=== PATIENT | female | born 1945 | race Caucasian/White ===

== ENCOUNTER 2018-11-11 12:46 | Inpatient (IN) | payer MEDICARE, BC ==
[~2018-11-11] VITALS: Ht 165.1 cm; Wt 77.3 kg
[2018-11-11] MEDS ORDERED: NS 1,000 ML IV ONE (13:15)
[2018-11-11] MEDS ORDERED: PANTOPRAZOLE 40MG INJ (PROTONIX) (C9113) IV ONE (13:15)
[2018-11-11 13:27] LABS: BASO % 0.3 % (0.0-1.0); EOS # 0.1 10^3/uL (0.0-0.50); EOS % 0.4 % (0.0-3.0); HEMATOCRIT 27.6 % (36.0-47.0); HEMOGLOBIN 8.8 g/dl (12.0-15.5); LYMPH # 3.4 10^3/uL (1.5-4.5); LYMPH % 28.5 % (24.0-44.0); MEAN CORPUSCULAR HEMOGLOBIN 27.9 pg (27.0-33.0); MEAN CORPUSCULAR HGB CONC 31.9 g/dl (32.0-36.5); MEAN CORPUSCULAR VOLUME 87.6 fl (80.0-96.0); MONO # 0.9 10^3/uL (0.0-0.8); MONO % 7.4 % (0.0-5.0); NEUTROPHILS # 7.4 10^3/uL (1.8-7.7); NEUTROPHILS % 62.1 % (36.0-66.0); PLATELET COUNT, AUTOMATED 314 10^3/uL (150-450); RED BLOOD COUNT 3.15 10^6/uL (4.00-5.40); WHITE BLOOD COUNT 11.9 10^3/uL (4.0-10.0)
[2018-11-11 13:37] LABS: INR 1.29; PROTHROMBIN TIME 15.8 SECONDS (11.8-14.0)
[2018-11-11 13:38] LABS: PARTIAL THROMBOPLASTIN TIME 26.6 SECONDS (25.0-38.4)
[2018-11-11] MEDS ORDERED: DOCU-122 PO (13:45)
[2018-11-11] MEDS ORDERED: DILT240C61 PO (13:45)
[2018-11-11] MEDS ORDERED: BETA1TAB PO (13:45)
[2018-11-11] MEDS ORDERED: LISI-538 PO (13:45)
[2018-11-11] MEDS ORDERED: SIMV10TA2 PO (13:45)
[2018-11-11] MEDS ORDERED: VISI0.053 OU (13:45)
[2018-11-11] MEDS ORDERED: FLON1SPR NARES (13:45)
[2018-11-11] MEDS ORDERED: ALPR0.25 PO (13:45)
[2018-11-11] MEDS ORDERED: CALC500C16 PO (13:45)
[2018-11-11] MEDS ORDERED: MECL-68 PO (13:45)
[2018-11-11] MEDS ORDERED: FLEC10TA PO (13:45)
[2018-11-11] MEDS ORDERED: QC F0.52 PO (13:45)
[2018-11-11] MEDS ORDERED: CENT1TAB PO (13:45)
[2018-11-11] MEDS ORDERED: ALLE180T33 PO (13:45)
[2018-11-11] MEDS ORDERED: ELIQ5TAB PO (13:45)
[2018-11-11] MEDS ORDERED: RANI1TAB38 PO (13:45)
[2018-11-11 13:56] LABS: ALBUMIN 2.7 GM/DL (3.2-5.2); BILIRUBIN,DIRECT 0.2 MG/DL (0.0-0.2); BILIRUBIN,TOTAL 0.4 MG/DL (0.2-1.0); CALCIUM LEVEL 8.3 MG/DL (8.8-10.2); CREATININE FOR GFR 1.04 MG/DL (0.55-1.30); GLOMERULAR FILTRATION RATE 55.3 (>39); POTASSIUM SERUM 4.4 MEQ/L (3.5-5.1); TOTAL PROTEIN 5.4 GM/DL (6.4-8.2)
--- NOTE | 2018-11-11 14:24 | REP ---
LEFT FOOT: Four views. HISTORY: Syncope. No comparison views. FINDINGS: The patient is status post surgery including bunionectomy of the 1st distal metatarsal, metallic staple arthrodesis of the 1st tarsometatarsal articulation, metallic staple arthrodesis at the talonavicular articulation, and metallic screw fusion arthrodesis in the subtalar articulation. There is plantar and Achilles calcaneal spurring. There is some spurring of the cuboid. The bones joints and soft tissues are otherwise unremarkable. No acute bony abnormality is seen. IMPRESSION: No fracture. Extensive surgical changes as above. Electronically Signed by Rashi Chapa MD 11/11/2018 09:00 P
--- NOTE | 2018-11-11 14:47 | REP ---
REASON FOR EXAM: Syncopal episode. FINDINGS: The technique utilized in obtaining the radiograph has magnified the cardiac silhouette and accentuated the interstitial markings. The superior mediastinal structures are midline. The cardiac silhouette is unremarkable in size, shape, and position. The diaphragmatic surfaces of the lungs are regular, and the costophrenic angles are clear. The pulmonary stovall are clear. The imaged osseous structures are intact. IMPRESSION: There is no acute cardiopulmonary disease. Electronically Signed by Nba Gamble DO 11/12/2018 03:08 P
[2018-11-11] MEDS ORDERED: MIRA3350 PO (15:04)
[2018-11-11] MEDS ORDERED: ACE65ERTAB PO (15:04)
[2018-11-11] MEDS ORDERED: LORazepam 0.5 MG TAB PO STA (15:11)
[2018-11-11] MEDS ORDERED: ACETAMINOPHEN TAB 650MG DOSE (2X325MG) PO PRN (16:00)
[2018-11-11] MEDS ORDERED: ONDANSETRON 4MG/2ML VIAL (J2405) IV PRN ×2 (16:00→19:45)
--- NOTE | 2018-11-11 16:11 | HPEPDOC ---
General Date of Admission 11/11/18 Date of Service: Nov 11, 2018 Attending Physician: FIONA GREENE DO Chief Complaint The patient is a 73-year-old female admitted with a reason for visit of Upper Gi Bleed. History of Present Illness Patient is 73 old female with past medical history of atrial fibrillation on anticoagulation, GERD, hypertension presents to the hospital after episode of syncope. Patient states that she fainted in the morning in front of her was physically present in the room. Patient stated that she remember that she was lightheadedness before she fainted. stated that patient regained consciousness in 5 minutes. Patient did not have any seizure-like activities, no urinary incontinence or fecal incontinence. After syncope patient developed one episode of emesis. When patient arrived hospital she was found to have hemoglobin of 8.8. Patient denies fever, chills, chest pain, palpitations, day or dysuria. Home Medications Scheduled Alprazolam (Alprazolam) 0.25 Mg Tablet, 0.25 MG PO BID, (Reported) Apixaban (Eliquis) 5 Mg Tablet, 5 MG PO BID, (Reported) Beta-Carotene(A)-Vits C,E/Mins (Vision Vitamins) 1 Each Tablet, 1 TAB PO DAILY, (Reported) Calcium Carbonate (Calcium) 500 Mg Tab.chew, 500 MG PO BID, (Reported) Fexofenadine HCl (Ana Allergy) 180 Mg Tablet, 180 MG PO DAILY for allergy symptoms, (Reported) Flecainide Acetate (Flecainide Acetate) 100 Mg Tablet, 100 MG PO BID, (Reported) Fluticasone Propionate (Flonase Allergy Relief) 9.9 Ml [place].susp, 2 SPRAY NARES QHS, (Reported) Lisinopril (Lisinopril) 20 Mg Tablet, 20 MG PO BID, (Reported) Multivit-Min/FA/Lycopen/Lutein (Centrum Silver Tablet) 1 Each Tablet, 1 TAB PO DAILY, (Reported) NORMALLY TAKES WITH LUNCH Psyllium Husk (Fiber) 0.52 Gm Capsule, 1 CAP PO BID, (Reported) Ranitidine Hcl (Ranitidine HCl) 150 Mg Tablet, 1 TAB PO DAILY, (Reported) Simvastatin (Simvastatin) 10 Mg Tablet, 10 MG PO QHS, (Reported) dilTIAZem HCl (Diltiazem 24Hr Cd) 240 Mg Cap.er.24h, 240 MG PO DAILY, (Reported) Scheduled PRN Acetaminophen (Acetaminophen ER) 650 Mg Tablet.er, 1,300 MG PO DAILY PRN for PAIN, (Reported) Docusate Sodium (Stool Softener) 100 Mg Capsule, 200 MG PO DAILY PRN for CONSTIPATION, (Reported) Meclizine HCl (Meclizine HCl) 25 Mg Tablet, 25 MG PO Q6H PRN for NAUSEA, (Reported) Polyethylene Glycol 3350 (Miralax) 119 Gm Powder, 17 GM PO DAILY PRN for CONSTIPATION, (Reported) dilute in 8 ounces of water or juice Tetrahydroz/Dext 70/Peg 400/Pv (Visine Advanced Eye Drop) 15 Ml Drops, 1 DROP OU Q6H PRN for ITCHING/SWELLING, (Reported) Allergies Coded Allergies: Penicillins (Verified Allergy, Intermediate, HIVES, 11/11/18) Past Medical History Medical History Atrial fibrillation, GERD, hypertension Surgical History Left foot surgery Family History Significant Family History: No pertinent family hx Social History * Smoker: Denies Alcohol: Denies Drugs: denies A-FIB/CHADSVASC A-FIB History Current/History of A-Fib/PAF?: Yes Current PO Anticoag Therapy: Yes Treatment Treatment ordered: Apixaban Physical Examination General Exam: Positive: Alert, Cooperative, No Acute Distress Eye Exam: Positive: PERRLA, Conjunctiva & lids normal, EOMI ENT Exam: Positive: Atraumatic, Mucous membr. moist/pink Neck Exam: Positive: +2 carotid pulse wo bruit; Negative: JVD, thyromegaly Chest Exam: Positive: Clear to auscultation, Normal air movement; Negative: Rales, Rhonchi Heart Exam: Positive: Rate Normal, Irregular Rhythm Telemetry: Positive: Atrial fibrillation Abdomen Exam: Positive: BS Hyperactive, Soft; Negative: Normal bowel sounds, Tenderness Extremity Exam: Negative: Clubbing, Cyanosis, Edema Skin Exam: Positive: Nl turgor and temperature; Negative: Rash, Breakdown Neuro Exam: Positive: Normal Speech, Cranial Nerves 3-12 NL Psych Exam: Positive: Mental status NL, Mood NL; Negative: Anxiety Vital Signs Vital Signs Date Time Temp Pulse Resp B/P (MAP) Pulse Ox O2 Delivery O2 Flow Rate FiO2 11/11/18 15:16 70 100 11/11/18 15:15 126/58 (80) 8/14/19 12:53 96.9 15 Room Air Laboratory Data Labs 24H Laboratory Tests 2 11/11/18 13:06: Immature Granulocyte % (Auto) 1.3, White Blood Count 11.9H, Red Blood Count 3.15L, Hemoglobin 8.8L, Hematocrit 27.6L, Mean Corpuscular Volume 87.6, Mean Corpuscular Hemoglobin 27.9, Mean Corpuscular Hemoglobin Concent 31.9L, Red Cell Distribution Width 13.2, Platelet Count 314, Neutrophils (%) (Auto) 62.1, Lymphocytes (%) (Auto) 28.5, Monocytes (%) (Auto) 7.4H, Eosinophils (%) (Auto) 0.4, Basophils (%) (Auto) 0.3, Neutrophils # (Auto) 7.4, Lymphocytes # (Auto) 3.4, Monocytes # (Auto) 0.9H, Eosinophils # (Auto) 0.1, Basophils # (Auto) 0.0, Nucleated Red Blood Cells % (auto) 0.0, Prothrombin Time 15.8H, Prothromb Time International Ratio 1.29, Activated Partial Thromboplast Time 26.6, Anion Gap 8, Glomerular Filtration Rate 55.3, Lactic Acid Level 1.7, Calcium Level 8.3L, Aspartate Amino Transf (AST/SGOT) 9, Alanine Aminotransferase (ALT/SGPT) 15, Alkaline Phosphatase 62, Total Bilirubin 0.4, Direct Bilirubin 0.2, Total Protein 5.4L, Albumin 2.7L, Albumin/Globulin Ratio 1.00, Lipase 254 CBC/BMP Laboratory Tests 11/11/18 13:06 Red Blood Count 3.15 L, Mean Corpuscular Volume 87.6, Mean Corpuscular Hemoglobin 27.9, Mean Corpuscular Hemoglobin Concent 31.9 L, Red Cell Distribution Width 13.2, Neutrophils (%) (Auto) 62.1, Lymphocytes (%) (Auto) 28.5, Monocytes (%) (Auto) 7.4 H, Eosinophils (%) (Auto) 0.4, Basophils (%) (Auto) 0.3, Neutrophils # (Auto) 7.4, Lymphocytes # (Auto) 3.4, Monocytes # (Auto) 0.9 H, Eosinophils # (Auto) 0.1, Basophils # (Auto) 0.0 Assessment/Plan Upper GI bleed IV fluid Orthostatic vital signs IV Protonix Appreciate/agree with GI consult Patient will need endoscopy H&H every 6 hours Clear liquid diet Acute blood loss anemia Secondary to upper GI bleed Continue to monitor, transfuse if hemoglobin less than 7 Syncope Most likely due to acute blood loss. EKG, telemetry Atrial fibrillation Heart rate is under control. We continued to hold anticoagulation Plan / VTE VTE Prophylaxis Ordered?: Yes VTE Exclusion Pharmacological: Hemorrhage FIONA GREENE DO Nov 11, 2018 16:11
[2018-11-11] MEDS ORDERED: MECLIZINE 25 MG TABLET PO PRN (16:15)
[2018-11-11 17:10] LABS: HEMATOCRIT 24.7 % (36.0-47.0); HEMOGLOBIN 8.1 g/dl (12.0-15.5)
[2018-11-11] MEDS: NS 1,000 ML IV SCH (17:50)
[2018-11-11] MEDS ORDERED: LIDOCAINE 2% INJ 100 MG/5 ML SDV (FOR ANES.) As Ordered ONE (18:01)
[2018-11-11] MEDS ORDERED: ONDANSETRON 4MG/2ML VIAL (J2405) As Ordered ONE ×2 (18:01→19:35)
[2018-11-11] MEDS ORDERED: dexameTHASONE 4 MG/ML 1ML VIAL (J1100) As Ordered ONE (18:01)
[2018-11-11] MEDS ORDERED: PROPOFOL 200 MG/20 ML VIAL As Ordered ONE (18:01)
[2018-11-11] MEDS ORDERED: MIDAZOLAM INJ 2 MG/2 ML VIAL (J2250) As Ordered ONE (18:01)
[2018-11-11] MEDS ORDERED: SUCCINYLCHOLINE 100 MG/5 ML SYRINGE (J0330) As Ordered ONE (18:01)
[2018-11-11] MEDS ORDERED: fentaNYL 100 MCG/2 ML INJECTION (J3010) As Ordered ONE (18:01)
--- NOTE | 2018-11-11 18:06 | ECGEPIP ---
[facility] - ED Test Date: 2018-11-11 Pat Name: DENA LEVINE Department: Room: [facility] Gender: Female Creative Director: ANGELICA : 1945 Requested By: DEAN CHARLES Order Number: [id number] Reading MD: Jess Vaughn Measurements Intervals [place] Rate: 71 P: 44 AK: 192 QRS: 15 QRSD: 144 T: 155 QT: 426 QTc: 464 Interpretive Statements SINUS RHYTHM LEFT BUNDLE BRANCH BLOCK NO PRIOR Electronically Signed on 11-11-2018 18:06:16 EDT by Jess Vaughn
--- NOTE | 2018-11-11 18:20 | CR.PDOC ---
General Surgery Consultation Date of Consultation 11/11/18 History and Physical CONSULT REPORT FOR: Mina Booker REASON FOR CONSULTATION: Suspect upper GI bleed HISTORY OF PRESENT ILLNESS: Patient is a 73-year-old female brought in for 2 episodes of syncope today. Patient reports that when she woke up this morning she wasn't feeling well, slightly lightheaded. She had 2 episodes of syncope. The same time she had some coffee ground emesis. She was then brought to the emergency room and was found to be anemic with a hemoglobin of 8.8. She reports prior history of gastroesophageal reflux for which she takes ranitidine with good control of her heartburn symptoms. She denies any prior history of peptic ulcer disease and has no prior history of upper endoscopy done for any reason. She has had previous colonoscopy done roughly 3 years ago in [place] with no significant findings at that time. While she was in the emergency room she reports she has had 2 melanotic bowel movements. She denies any significant epigastric discomfort, chest pain, further lightheadedness. Patient is taking Eliquis for atrial fibrillation. She took at this morning. PAST MEDICAL HISTORY: Atrial fibrillation, GERD, hypertension Surgical History PAST SURGICAL HISTORY: INCLUDES: 1. Left foot surgery. PREVIOUS ANESTHESIA REACTIONS: Patient reports slow to wake up with anesthesia ALLERGIES: Please see below. FAMILY HISTORY: Noncontributory. HOME MEDICATIONS: Please see below. REVIEW OF SYSTEMS: GENERAL: Patient reports she was in her usual state of health prior to today. Denies any significant weight gain or weight loss. HEENT: Denies blurred vision and double vision. Denies ear symptoms. Denies hoarseness. NECK: Denies any neck pain CARDIOVASCULAR: Denies chest pain and palpitations. MUSCULOSKELETAL: Denies arthralgias, back pain and thrombophlebitis. SKIN: Denies rash. NEUROLOGIC: Denies headache, stroke and transient ischemic attack. PSYCHIATRIC: Denies anxiety and depression. ENDOCRINE: Denies thyroid disease. HEMATOLOGY/ONCOLOGY: Denies bleeding or clotting disorder. Patient is on Eliquis for atrial fibrillation. Last intake was this morning HEART: Denies any chest pains, palpitations, paroxysmal dyspnea, orthopnea. PULMONARY: Denies chronic cough, dyspnea and wheezing. GASTROINTESTINAL: See HPI. GENITOURINARY: Denies dysuria, frequency, hematuria and nocturia. ENDOCRINE: Denies polydipsia, polyphagia, polyuria, heat or cold intolerance. INFECTIOUS: Denies any recent upper respiratory tract infection, UTI, need for use of antibiotics. NUTRITION: Feels hungry, reports fair appetite. PHYSICAL EXAMINATION: VITALS SIGNS: Please see below. GENERAL APPEARANCE: Patient seen relatively comfortable, looks pale. SKIN: Warm and dry. HEENT: Normocephalic, atraumatic. Pale palpebral conjunctiva, anicteric sclerae. Lips and mucosa appear dry. NECK: Supple, no thyromegaly. No obvious jugular venous distention. LUNGS: Clear to auscultation bilaterally. No wheezing appreciated. HEART: No chest wall abnormalities. Regular rate and rhythm with no murmurs appreciated. ABDOMEN: Abdomen is mildly obese, soft, nondistended. Nontender on palpation. EXTREMITIES: Extremities have no deformities. No edema identified ANCILLARIES: . LABORATORY DATA: Please see below. IMAGING STUDIES: No relevant studies. IMPRESSION AND PLAN: Suspect upper GI bleeding Post-hemorrhagic anemia Repeat hemoglobin and hematocrit 4 hours after the initial one shows a slight drop at 8.1 and 24.7. Patient reports 2 melanotic episodes when she was in the emergency room. She remains hemodynamically stable. She received a dose of Pro tonix IV. I counseled her on the rationale and need for performing an upper endoscopy to rule out an upper GI bleed source, check if she still actively bleeding and try to stem the bleeding with endoscopic modalities. Consent was obtained from the patient after full discussion of risks and benefits including risks for further bleeding, perforation, need for surgical procedure. Vital Signs Vital Signs Date Time Temp Pulse Resp B/P (MAP) Pulse Ox O2 Delivery O2 Flow Rate FiO2 11/11/18 17:54 97.6 82 20 161/67 (98) 99 Room Air Laboratory Data Labs 24H Laboratory Tests 2 11/11/18 13:06: Immature Granulocyte % (Auto) 1.3, White Blood Count 11.9H, Red Blood Count 3.15L, Hemoglobin 8.8L, Hematocrit 27.6L, Mean Corpuscular Volume 87.6, Mean Corpuscular Hemoglobin 27.9, Mean Corpuscular Hemoglobin Concent 31.9L, Red Cell Distribution Width 13.2, Platelet Count 314, Neutrophils (%) (Auto) 62.1, Lymphocytes (%) (Auto) 28.5, Monocytes (%) (Auto) 7.4H, Eosinophils (%) (Auto) 0.4, Basophils (%) (Auto) 0.3, Neutrophils # (Auto) 7.4, Lymphocytes # (Auto) 3.4, Monocytes # (Auto) 0.9H, Eosinophils # (Auto) 0.1, Basophils # (Auto) 0.0, Nucleated Red Blood Cells % (auto) 0.0, Prothrombin Time 15.8H, Prothromb Time International Ratio 1.29, Activated Partial Thromboplast Time 26.6, Anion Gap 8, Glomerular Filtration Rate 55.3, Lactic Acid Level 1.7, Calcium Level 8.3L, Aspartate Amino Transf (AST/SGOT) 9, Alanine Aminotransferase (ALT/SGPT) 15, Alkaline Phosphatase 62, Total Bilirubin 0.4, Direct Bilirubin 0.2, Total Protein 5.4L, Albumin 2.7L, Albumin/Globulin Ratio 1.00, Lipase 254 CBC/BMP Laboratory Tests 11/11/18 13:06 Red Blood Count 3.15 L, Mean Corpuscular Volume 87.6, Mean Corpuscular Hemoglobin 27.9, Mean Corpuscular Hemoglobin Concent 31.9 L, Red Cell Distribution Width 13.2, Neutrophils (%) (Auto) 62.1, Lymphocytes (%) (Auto) 28.5, Monocytes (%) (Auto) 7.4 H, Eosinophils (%) (Auto) 0.4, Basophils (%) (Auto) 0.3, Neutrophils # (Auto) 7.4, Lymphocytes # (Auto) 3.4, Monocytes # (Auto) 0.9 H, Eosinophils # (Auto) 0.1, Basophils # (Auto) 0.0 11/11/18 16:41 Home Medications Scheduled Alprazolam (Alprazolam) 0.25 Mg Tablet, 0.25 MG PO BID, (Reported) Apixaban (Eliquis) 5 Mg Tablet, 5 MG PO BID, (Reported) Beta-Carotene(A)-Vits C,E/Mins (Vision Vitamins) 1 Each Tablet, 1 TAB PO DAILY, (Reported) Calcium Carbonate (Calcium) 500 Mg Tab.chew, 500 MG PO BID, (Reported) Fexofenadine HCl (Ana Allergy) 180 Mg Tablet, 180 MG PO DAILY for allergy symptoms, (Reported) Flecainide Acetate (Flecainide Acetate) 100 Mg Tablet, 100 MG PO BID, (Reported) Fluticasone Propionate (Flonase Allergy Relief) 9.9 Ml [place].susp, 2 SPRAY NARES QHS, (Reported) Lisinopril (Lisinopril) 20 Mg Tablet, 20 MG PO BID, (Reported) Multivit-Min/FA/Lycopen/Lutein (Centrum Silver Tablet) 1 Each Tablet, 1 TAB PO DAILY, (Reported) NORMALLY TAKES WITH LUNCH Psyllium Husk (Fiber) 0.52 Gm Capsule, 1 CAP PO BID, (Reported) Ranitidine Hcl (Ranitidine HCl) 150 Mg Tablet, 1 TAB PO DAILY, (Reported) Simvastatin (Simvastatin) 10 Mg Tablet, 10 MG PO QHS, (Reported) dilTIAZem HCl (Diltiazem 24Hr Cd) 240 Mg Cap.er.24h, 240 MG PO DAILY, (Reported) Scheduled PRN Acetaminophen (Acetaminophen ER) 650 Mg Tablet.er, 1,300 MG PO DAILY PRN for PAIN, (Reported) Docusate Sodium (Stool Softener) 100 Mg Capsule, 200 MG PO DAILY PRN for CONSTIPATION, (Reported) Meclizine HCl (Meclizine HCl) 25 Mg Tablet, 25 MG PO Q6H PRN for NAUSEA, (Reported) Polyethylene Glycol 3350 (Miralax) 119 Gm Powder, 17 GM PO DAILY PRN for CONSTIPATION, (Reported) dilute in 8 ounces of water or juice Tetrahydroz/Dext 70/Peg 400/Pv (Visine Advanced Eye Drop) 15 Ml Drops, 1 DROP OU Q6H PRN for ITCHING/SWELLING, (Reported) Allergies Coded Allergies: Penicillins (Verified Allergy, Intermediate, HIVES, 11/11/18) BETHANY CARSON MD Nov 11, 2018 18:20
[2018-11-11] MEDS ORDERED: PHENYLephrine HCL 500 MCG/5 ML (100MCG/ML) SYRINGE (J2370) As Ordered ONE (18:58)
[2018-11-11] MEDS ORDERED: ePHEDrine SULFATE 25 MG/5 ML(5MG/ML) SYRINGE As Ordered ONE (18:58)
[2018-11-11] MEDS ORDERED: EPINEPHrine 1MG/10ML SYRINGE 1.5IN As Ordered ONE (19:00)
[2018-11-11] MEDS ORDERED: EPINEPHrine INJ 1 MG/ML 1ML AMP As Ordered ONE (19:01)
[2018-11-11] MEDS ORDERED: EPINEPHrine 1MG/ML INJ 30ML MD-VIAL As Ordered ONE (19:01)
--- NOTE | 2018-11-11 19:17 | ROOR ---
Patient Name: DENA LEVINE Procedure Date: 11/11/2018 6:13 PM Date of : 1945 Age: 73 Note Status: Finalized Procedure: Upper GI endoscopy Indications: Hematemesis, Melena Providers: Heriberto Harper MD Referring MD: 2. Inpatient 2. Inpatient Requesting Provider: Medicines: General Anesthesia Complications: No immediate complications. Procedure: Pre-Anesthesia Assessment: - Prior to the procedure, a History and Physical was performed, and patient medications and allergies were reviewed. The patient is competent. The risks and benefits of the procedure and the sedation options and risks were discussed with the patient. All questions were answered and informed consent was obtained. Patient identification and proposed procedure were verified by the physician, the nurse and the anesthesiologist in the procedure room. Mental Status Examination: alert and oriented. Airway Examination: normal oropharyngeal airway and neck mobility. Respiratory Examination: clear to auscultation. CV Examination: normal. Prophylactic Antibiotics: The patient does not require prophylactic antibiotics. Prior Anticoagulants: The patient has taken Eliquis (apixaban), last dose was day of procedure. ASA Grade Assessment: III - A patient with severe systemic disease. After reviewing the risks and benefits, the patient was deemed in satisfactory condition to undergo the procedure. The anesthesia plan was to use general anesthesia. Immediately prior to administration of medications, the patient was re-assessed for adequacy to receive sedatives. The heart rate, respiratory rate, oxygen saturations, blood pressure, adequacy of pulmonary ventilation, and response to care were monitored throughout the procedure. The physical status of the patient was re-assessed after the procedure. The Endoscope was introduced through the mouth, and advanced to the second part of duodenum. The upper GI endoscopy was accomplished without difficulty. The patient tolerated the procedure well. Findings: There is no endoscopic evidence of bleeding, areas of erosion or esophagitis in the entire esophagus. Estimated blood loss: none. Hematin (altered blood/rttlng-ejljqe-tbik material) was found at the pylorus. One non-bleeding cratered gastric ulcer with adherent clot was found in the prepyloric region of the stomach. The lesion was 5 mm in largest dimension. For hemostasis, two hemostatic clips were successfully placed (MR conditional). There was no bleeding at the end of the procedure. Area was successfully injected with 3 mL of a 1:10,000 solution of epinephrine for hemostasis. The examined duodenum was normal. Estimated blood loss: none. Impression: - Hematin (altered blood/xsekfc-laxpee-qnfl material) in the pylorus. - Non-bleeding gastric ulcer with adherent clot. Clips (MR conditional) were placed. Injected. - Normal examined duodenum. - No specimens collected. Recommendation: - Admit the patient to [facility] for ongoing care. - Clear liquid diet. - Use Protonix (pantoprazole) 40 mg IV BID. Heriberto Harper MD Heriberto Harper MD 11/11/2018 7:17:10 PM Electronically signed by Heriberto Harper MD Number of Addenda: 0 Note Initiated On: 11/11/2018 6:13 PM Estimated Blood Loss: Estimated blood loss was minimal.
[2018-11-11] MEDS ORDERED: METOCLOPRAMIDE INJ 10MG/2ML VIAL (J2765) As Ordered ONE (19:41)
[2018-11-11] MEDS ORDERED: LR 1,000 ML IV SCH (19:45)
[2018-11-11] MEDS ORDERED: fentaNYL 100 MCG/2 ML INJECTION (J3010) IV PRN (19:45)
[2018-11-11] MEDS ORDERED: PROMETHAZINE INJ 25 MG/ML VIAL (J2550) IV PRN (20:00)
[2018-11-11 20:35] VITALS: BP 162/70
[2018-11-11] MEDS: PANTOPRAZOLE 40MG INJ (PROTONIX) (C9113) IV SCH (20:55)
[2018-11-11] MEDS: SIMVASTATIN 10 MG TAB PO SCH (20:56)
[2018-11-11] MEDS: FLECAINIDE 50MG TABLET PO SCH (20:56)
[2018-11-11] MEDS: ALPRAZolam 0.25 MG TAB PO SCH (20:56)
[2018-11-11] MEDS: FLUTICASONE PROP 0.05% NASAL SPRAY 16 GM (FLONASE) NARES SCH (20:57)
[2018-11-11 21:00] VITALS: BP 166/70
[2018-11-11 21:30] VITALS: BP 133/64
[2018-11-11 22:13] LABS: HEMATOCRIT 24.7 % (36.0-47.0)
[2018-11-11 22:30] VITALS: BP 136/64
[2018-11-11 23:30] VITALS: BP 149/64
[2018-11-12] MEDS: NS 1,000 ML IV SCH (00:18)
[2018-11-12 00:30] VITALS: BP 147/63
[2018-11-12 02:00] VITALS: BP 145/62
[2018-11-12 05:45] LABS: HEMOGLOBIN 7.2 g/dl (12.0-15.5)
[2018-11-12 06:00] VITALS: BP 115/55
[2018-11-12 07:59] LABS: ALBUMIN 2.6 GM/DL (3.2-5.2); BILIRUBIN,TOTAL 0.4 MG/DL (0.2-1.0); CALCIUM LEVEL 8.3 MG/DL (8.8-10.2); CREATININE FOR GFR 1.03 MG/DL (0.55-1.30); GLOMERULAR FILTRATION RATE 55.9 (>39); POTASSIUM SERUM 4.6 MEQ/L (3.5-5.1)
[2018-11-12] MEDS ORDERED: PREVNAR 13 VACCINE SYRINGE (CPT CODE:90670) IM ONE (09:00)
[2018-11-12] MEDS: PANTOPRAZOLE 40MG INJ (PROTONIX) (C9113) IV SCH ×2 (10:26→22:29)
[2018-11-12] MEDS: ALPRAZolam 0.25 MG TAB PO SCH ×2 (10:28→22:29)
[2018-11-12] MEDS: FLECAINIDE 50MG TABLET PO SCH ×2 (10:28→22:29)
[2018-11-12] MEDS: FEXOFENADINE 60 MG TAB PO SCH (10:29)
--- NOTE | 2018-11-12 12:32 | IPNPDOC ---
Text Note Date of Service The patient was seen on 11/12/18. NOTE Subjective Acute events overnight. Awake, alert, oriented. Patient denies any fever, chills, nausea, vomiting, chest pain, palpitations, diarrhea or dysuria Objective General: NAD HEENT: PERRLA, EOMI Lungs: Clear to auscultation bilaterally Abdomen: Nontender, nondistended, bowel sounds present CV: S1-S2, regular rhythm Extremitas: No edema, no cyanosis of LE A/P Patient is 73 years old female with past history of atrial fibrillation, GERD, hypertension presents to the hospital with history of coffee-ground emesis and syncope. Also patient had 2 episodes of melanotic stool. EGD was done yesterday and showed one nonbleeding crater ulcer with adherent clot in the prepyloric region, hemostatic clips successfully placed Upper GI bleed Secondary to prepyloric ulcer visible during EGD Continue treatment with IV Protonix for 72 hours total Continue clear liquid diet Will transfuse if hemoglobin is less than 7 Gastric ulcer Patient will need follow-up with magazine writer in the outpatient settings in 6 weeks Avoid NSAIDs Acute blood loss anemia Secondary to upper GI bleed no signs or symptoms of continuous acute bleeding for now Will check iron panel Atrial fibrillation Will continue to hold anticoagulation therapy in light of recent upper GI bleeding Syncope Secondary to acute GI bleed Continue Telemetry VS,Krystal, I+O VS, Krystal, I+O Laboratory Tests 11/11/18 13:06 Red Blood Count 3.15 L, Mean Corpuscular Volume 87.6, Mean Corpuscular Hemoglobin 27.9, Mean Corpuscular Hemoglobin Concent 31.9 L, Red Cell Distribution Width 13.2, Neutrophils (%) (Auto) 62.1, Lymphocytes (%) (Auto) 28.5, Monocytes (%) (Auto) 7.4 H, Eosinophils (%) (Auto) 0.4, Basophils (%) (Auto) 0.3, Neutrophils # (Auto) 7.4, Lymphocytes # (Auto) 3.4, Monocytes # (Auto) 0.9 H, Eosinophils # (Auto) 0.1, Basophils # (Auto) 0.0 11/11/18 16:41 11/11/18 21:56 11/12/18 04:05 Calcium Level 8.3 L, Aspartate Amino Transf (AST/SGOT) 11, Alanine Aminotransferase (ALT/SGPT) 16, Alkaline Phosphatase 53, Total Bilirubin 0.4, Total Protein 5.0 L, Albumin 2.6 L Vital Signs Date Time Temp Pulse Resp B/P (MAP) Pulse Ox O2 Delivery O2 Flow Rate FiO2 11/12/18 06:00 97.6 79 18 115/55 (75) 97 11/11/18 19:45 2 11/11/18 17:54 Room Air I&O- Last 24 Hours up to 6 AM 11/12/18 06:00 Intake Total 1885 ml Output Total 950 ml Balance 935 ml FIONA GREENE DO Nov 12, 2018 12:32
[2018-11-12 13:40] LABS: HEMATOCRIT 21.3 % (36.0-47.0)
[2018-11-12 13:45] LABS: HEMOGLOBIN 6.9 g/dl (12.0-15.5)
--- NOTE | 2018-11-12 14:19 | IPNPDOC ---
Subjective General Date/Time Seen The patient was seen on 11/12/18 at 14:16. Subject Chief Complaint/History The patient is a 73-year-old female admitted with a reason for visit of Gi Bleed,Syncope. Patient seen, looks comfortable. A explained to her my findings in the endoscopy as well as to her later on. She denies any abdominal discomfort. She reports she had one bowel movement this morning that colored black, not sure if solid or tarry. Current Medications Current Medications Current Medications Medications (Trade) Dose Ordered Sig/Demi Route PRN Reason Start Time Stop Time Status Last Admin Dose Admin Acetaminophen (Tylenol Tab) 650 mg Q4HP PRN PO PAIN OR FEVER 11/11/18 16:00 Alprazolam (Xanax) 0.25 mg BID PO 11/11/18 21:00 11/12/18 10:28 Fentanyl Citrate (Sublimaze) 25 mcg Q5MP PRN IV MODERATE PAIN (PS 4-7) 11/11/18 19:45 11/11/18 20:45 DC Fexofenadine HCl (Ana) 180 mg DAILY PO 11/12/18 09:00 11/12/18 10:29 Flecainide Acetate (Tambocor) 100 mg BID PO 11/11/18 21:00 11/12/18 10:28 Fluticasone Propionate (Flonase 0.05% Nasal [place]) 2 spray QHS NARES 11/11/18 21:00 11/11/18 20:57 Home Med (Med Rec Complete!) ASDIRECTED XX 11/11/18 15:30 11/11/18 15:30 DC Lactated Ringer's 1,000 ml @ 75 mls/hr [id number] IV 11/11/18 19:45 11/11/18 20:45 DC Lorazepam (Ativan) 0.5 mg STAT STAT PO 11/11/18 15:11 11/11/18 15:12 DC 11/11/18 15:32 Meclizine HCl (Antivert) 25 mg Q6HP PRN PO NAUSEA 11/11/18 16:15 Ondansetron HCl (ZOFRAN INJection) 4 mg Q4HP PRN IV NAUSEA OR VOMITING 11/11/18 16:00 Ondansetron HCl (ZOFRAN INJection) 4 mg Q4HP PRN IV NAUSEA OR VOMITING 11/11/18 19:45 11/11/18 20:45 DC Pantoprazole Sodium (Protonix) 40 mg BID IV 11/11/18 21:00 11/12/18 10:26 Promethazine HCl (PHENERGAN INJection) 12.5 mg Q5MP PRN IV NAUSEA OR VOMITING 11/11/18 20:00 11/11/18 21:00 DC Simvastatin (Zocor) 10 mg QHS PO 11/11/18 21:00 11/11/18 20:56 Sodium Chloride 1,000 ml @ 100 mls/hr Q10H IV 11/11/18 16:00 11/12/18 11:59 DC 11/12/18 00:18 Allergies Coded Allergies: Penicillins (Verified Allergy, Intermediate, HIVES, 11/11/18) Objective Physical Examination Examination GENERAL APPEARANCE:Patient seen, laying in bed, awake, alert, and oriented. Comfortable, in no acute distress. SKIN: Warm and moist. ABDOMEN: Abdomen is nondistended, soft, and nontender. EXTREMITIES: Extremities have no deformities. No edema identified. Vital Signs Vital Signs Date Time Temp Pulse Resp B/P (MAP) Pulse Ox O2 Delivery O2 Flow Rate FiO2 11/12/18 06:00 97.6 79 18 115/55 (75) 97 11/11/18 19:45 2 11/11/18 17:54 Room Air I&Os I&O- Last 24 Hours up to 6 AM 11/12/18 06:00 Intake Total 1885 ml Output Total 950 ml Balance 935 ml Laboratory Data Labs 24H Laboratory Tests 2 11/12/18 04:05: Anion Gap 7L, Glomerular Filtration Rate 55.9, Blood Urea Nitrogen 40H, Creatinine 1.03, Sodium Level 140, Potassium Level 4.6, Chloride Level 108H, Carbon Dioxide Level 25, Calcium Level 8.3L, Aspartate Amino Transf (AST/SGOT) 11, Alanine Aminotransferase (ALT/SGPT) 16, Alkaline Phosphatase 53, Total Bilirubin 0.4, Total Protein 5.0L, Albumin 2.6L, Albumin/Globulin Ratio 1.08 CBC/BMP Laboratory Tests 11/11/18 16:41 11/11/18 21:56 11/12/18 04:05 Calcium Level 8.3 L, Aspartate Amino Transf (AST/SGOT) 11, Alanine Aminotransferase (ALT/SGPT) 16, Alkaline Phosphatase 53, Total Bilirubin 0.4, Total Protein 5.0 L, Albumin 2.6 L 11/12/18 13:24 Impression Upper GI bleeding from a prepyloric ulcer status post EGD, placement of clips and injection of epinephrine Hemodynamically stable. I'll advance her to soft diet. Continue monitoring. Transfusion per primary team if needed. Keep on by mouth Protonix 40 twice a day for 6 weeks then tapered down to 40 daily. She lives primarily in [place]. I told him that she may need to consult a local physician for re-endoscopy in a few months to check for healing of the ulcer Plan / VTE VTE Prophylaxis Ordered?: Yes VTE Exclusion Pharmacological: Hemorrhage BETHANY CARSON MD Nov 12, 2018 14:19
[2018-11-12 22:00] VITALS: BP 167/77
[2018-11-12] MEDS: SIMVASTATIN 10 MG TAB PO SCH (22:29)
[2018-11-12] MEDS: FLUTICASONE PROP 0.05% NASAL SPRAY 16 GM (FLONASE) NARES SCH (22:30)
[2018-11-13] VITALS (9 sets, daily range): BP systolic 111–181; BP diastolic 58–77
[2018-11-13 07:47] LABS: HEMATOCRIT 24.4 % (36.0-47.0); HEMOGLOBIN 8.2 g/dl (12.0-15.5); MEAN CORPUSCULAR HEMOGLOBIN 28.2 pg (27.0-33.0); MEAN CORPUSCULAR HGB CONC 33.6 g/dl (32.0-36.5); MEAN CORPUSCULAR VOLUME 83.8 fl (80.0-96.0); PLATELET COUNT, AUTOMATED 239 10^3/uL (150-450); RED BLOOD COUNT 2.91 10^6/uL (4.00-5.40); WHITE BLOOD COUNT 13.5 10^3/uL (4.0-10.0)
[2018-11-13] MEDS ORDERED: NS 1,000 ML IV SCH ×2 (08:00)
[2018-11-13 08:05] LABS: BLOOD UREA NITROGEN 25 MG/DL (7-18); CALCIUM LEVEL 8.5 MG/DL (8.8-10.2); CARBON DIOXIDE LEVEL 29 MEQ/L (21-32); CHLORIDE LEVEL 107 MEQ/L (98-107); CREATININE FOR GFR 0.93 MG/DL (0.55-1.30); GLOMERULAR FILTRATION RATE > 60.0 (>39); GLUCOSE, FASTING 87 MG/DL (70-100); POTASSIUM SERUM 3.8 MEQ/L (3.5-5.1); SODIUM LEVEL 140 MEQ/L (136-145)
[2018-11-13] MEDS: FEXOFENADINE 60 MG TAB PO SCH (09:18)
[2018-11-13] MEDS: PANTOPRAZOLE 40MG INJ (PROTONIX) (C9113) IV SCH ×2 (09:18→21:12)
[2018-11-13] MEDS: FLECAINIDE 50MG TABLET PO SCH ×2 (09:19→21:12)
[2018-11-13] MEDS: ALPRAZolam 0.25 MG TAB PO SCH ×2 (09:20→21:12)
--- NOTE | 2018-11-13 09:41 | IPNPDOC ---
Subjective General Date/Time Seen The patient was seen on 11/13/18 at 09:39. Subject Chief Complaint/History The patient is a 73-year-old female admitted with a reason for visit of Gi Bleed,Syncope. Patient reports she is feeling well but when they tried to stand her up early this morning she has a good amount of discrepancy on her blood pressure though she denies any lightheadedness. No bowel movements since yesterday and that was solid stools. Current Medications Current Medications Current Medications Medications (Trade) Dose Ordered Sig/Demi Route PRN Reason Start Time Stop Time Status Last Admin Dose Admin Acetaminophen (Tylenol Tab) 650 mg Q4HP PRN PO PAIN OR FEVER 11/11/18 16:00 Alprazolam (Xanax) 0.25 mg BID PO 11/11/18 21:00 11/13/18 09:20 Diltiazem HCl (Cardizem Cd) 120 mg DAILY PO 11/13/18 09:00 11/13/18 09:20 Fentanyl Citrate (Sublimaze) 25 mcg Q5MP PRN IV MODERATE PAIN (PS 4-7) 11/11/18 19:45 11/11/18 20:45 DC Fexofenadine HCl (Ana) 180 mg DAILY PO 11/12/18 09:00 11/13/18 09:18 Flecainide Acetate (Tambocor) 100 mg BID PO 11/11/18 21:00 11/13/18 09:19 Fluticasone Propionate (Flonase 0.05% Nasal [place]) 2 spray QHS NARES 11/11/18 21:00 11/12/18 22:30 Home Med (Med Rec Complete!) ASDIRECTED XX 11/11/18 15:30 11/11/18 15:30 DC Lactated Ringer's 1,000 ml @ 75 mls/hr [id number] IV 11/11/18 19:45 11/11/18 20:45 DC Lorazepam (Ativan) 0.5 mg STAT STAT PO 11/11/18 15:11 11/11/18 15:12 DC 11/11/18 15:32 Meclizine HCl (Antivert) 25 mg Q6HP PRN PO NAUSEA 11/11/18 16:15 Ondansetron HCl (ZOFRAN INJection) 4 mg Q4HP PRN IV NAUSEA OR VOMITING 11/11/18 16:00 Ondansetron HCl (ZOFRAN INJection) 4 mg Q4HP PRN IV NAUSEA OR VOMITING 11/11/18 19:45 11/11/18 20:45 DC Pantoprazole Sodium (Protonix) 40 mg BID IV 11/11/18 21:00 11/13/18 09:18 Promethazine HCl (PHENERGAN INJection) 12.5 mg Q5MP PRN IV NAUSEA OR VOMITING 11/11/18 20:00 11/11/18 21:00 DC Simvastatin (Zocor) 10 mg QHS PO 11/11/18 21:00 11/12/18 22:29 Sodium Chloride 1,000 ml @ 100 mls/hr Q10H IV 11/11/18 16:00 11/12/18 11:59 DC 11/12/18 00:18 Sodium Chloride 1,000 ml @ 100 mls/hr Q10H IV 11/13/18 08:00 11/13/18 09:21 Sodium Chloride 1,000 ml @ 100 mls/hr Q10H IV 11/13/18 08:00 UNV Allergies Coded Allergies: Penicillins (Verified Allergy, Intermediate, HIVES, 11/11/18) Objective Physical Examination Examination GENERAL APPEARANCE: Comfortable CARDIAC: Non-tachycardic. ABDOMEN: Abdomen is nondistended, soft, and nontender. . Vital Signs Vital Signs Date Time Temp Pulse Resp B/P (MAP) Pulse Ox O2 Delivery O2 Flow Rate FiO2 11/13/18 09:20 80 113/67 11/13/18 06:00 97.7 16 98 11/11/18 19:45 2 11/11/18 17:54 Room Air I&Os I&O- Last 24 Hours up to 6 AM 11/13/18 06:00 Intake Total 2020 ml Output Total 1750 ml Balance 270 ml Laboratory Data Labs 24H Laboratory Tests 2 11/13/18 07:28: Nucleated Red Blood Cells % (auto) 0.0, Anion Gap 4L, Glomerular Filtration Rate > 60.0, Blood Urea Nitrogen 25H, Creatinine 0.93, Sodium Level 140, Potassium Level 3.8, Chloride Level 107, Carbon Dioxide Level 29, Calcium Level 8.5L CBC/BMP Laboratory Tests 11/12/18 13:24 11/13/18 07:28 Red Blood Count 2.91 L, Mean Corpuscular Volume 83.8, Mean Corpuscular Hemoglobin 28.2, Mean Corpuscular Hemoglobin Concent 33.6, Red Cell Distribution Width 13.5, Calcium Level 8.5 L Impression UGIB from prepyloric ulcer s/p EGD clipping of th ulcer clinically no signs of ongoing bleed though she did continue to drop her hgb and hct yesterday, had 1 u prbc transfusion. seems to be still symptomatic so i will give her one more unit. needs more frequent blood monitoring. Plan / VTE VTE Prophylaxis Ordered?: Yes VTE Exclusion Pharmacological: Hemorrhage BETHANY CARSON MD Nov 13, 2018 09:41
--- NOTE | 2018-11-13 11:02 | IPNPDOC ---
Text Note Date of Service The patient was seen on 11/13/18. NOTE Subjective Acute events overnight. Awake, alert, oriented. Patient stated that she has dizziness and lightheadedness when she stands up. Patient denies any fever, chills, nausea, vomiting, chest pain, palpitations, diarrhea or dysuria Objective General: NAD HEENT: PERRLA, EOMI Lungs: Clear to auscultation bilaterally Abdomen: Nontender, nondistended, bowel sounds present CV: S1-S2, regular rhythm Extremitas: No edema, no cyanosis of LE A/P Patient is 73 years old female with past history of atrial fibrillation, GERD, hypertension presents to the hospital with history of coffee-ground emesis and syncope. Also patient had 2 episodes of melanotic stool. EGD was done yesterday and showed one nonbleeding crater ulcer with adherent clot in the prepyloric region, hemostatic clips successfully placed. IV Protonix 72 h total. Upper GI bleed Secondary to prepyloric ulcer visible during EGD Continue treatment with IV Protonix for 72 hours total soft diet [id number] Patient received 1 unit of blood today due to symptomatic anemia Gastric ulcer Patient will need follow-up with apartment maintenance in the outpatient settings in 6 weeks Avoid NSAIDs Acute blood loss anemia Secondary to upper GI bleed no signs or symptoms of continuous acute bleeding for now Atrial fibrillation Will continue to hold anticoagulation therapy in light of recent upper GI bleeding Syncope Secondary to acute GI bleed Continue Telemetry VS,Krystal, I+O VS, Krystal, I+O Laboratory Tests 11/12/18 13:24 11/13/18 07:28 Red Blood Count 2.91 L, Mean Corpuscular Volume 83.8, Mean Corpuscular Hemoglobin 28.2, Mean Corpuscular Hemoglobin Concent 33.6, Red Cell Distribution Width 13.5, Calcium Level 8.5 L Vital Signs Date Time Temp Pulse Resp B/P (MAP) Pulse Ox O2 Delivery O2 Flow Rate FiO2 11/13/18 09:20 80 113/67 11/13/18 06:00 97.7 16 98 11/11/18 19:45 2 11/11/18 17:54 Room Air I&O- Last 24 Hours up to 6 AM 11/13/18 06:00 Intake Total 2020 ml Output Total 1750 ml Balance 270 ml FIONA GREENE DO Nov 13, 2018 11:02
[2018-11-13 16:42] LABS: HEMATOCRIT 30.7 % (36.0-47.0); HEMOGLOBIN 10.3 g/dl (12.0-15.5)
[2018-11-13] MEDS: FLUTICASONE PROP 0.05% NASAL SPRAY 16 GM (FLONASE) NARES SCH (21:11)
[2018-11-13] MEDS: SIMVASTATIN 10 MG TAB PO SCH (21:12)
[2018-11-13 22:59] LABS: HEMATOCRIT 26.4 % (36.0-47.0); HEMOGLOBIN 9.1 g/dl (12.0-15.5)
[2018-11-14 02:00] VITALS: BP 156/65
[2018-11-14 05:41] LABS: HEMATOCRIT 27.5 % (36.0-47.0); HEMOGLOBIN 9.2 g/dl (12.0-15.5); MEAN CORPUSCULAR HEMOGLOBIN 28.8 pg (27.0-33.0); MEAN CORPUSCULAR HGB CONC 33.5 g/dl (32.0-36.5); MEAN CORPUSCULAR VOLUME 85.9 fl (80.0-96.0); PLATELET COUNT, AUTOMATED 216 10^3/uL (150-450)
[2018-11-14 06:00] VITALS: BP 157/69
[2018-11-14 06:07] LABS: CALCIUM LEVEL 8.6 MG/DL (8.8-10.2); CREATININE FOR GFR 0.97 MG/DL (0.55-1.30); GLOMERULAR FILTRATION RATE 59.9 (>39); POTASSIUM SERUM 4.2 MEQ/L (3.5-5.1)
[2018-11-14] MEDS: PANTOPRAZOLE 40MG INJ (PROTONIX) (C9113) IV SCH (08:31)
[2018-11-14] MEDS: FEXOFENADINE 60 MG TAB PO SCH (08:31)
[2018-11-14] MEDS: ALPRAZolam 0.25 MG TAB PO SCH (08:31)
[2018-11-14] MEDS: FLECAINIDE 50MG TABLET PO SCH (08:31)
[2018-11-14 08:32] VITALS: BP 153/63
[2018-11-14 10:00] VITALS: BP 163/64
[2018-11-14 10:26] LABS: HEMATOCRIT 27.4 % (36.0-47.0); HEMOGLOBIN 9.1 g/dl (12.0-15.5)
[2018-11-14 10:58] VITALS: BP_SYST 153; BP_SYST 164; BP_SYST 165; BP_DIAS 64; BP_DIAS 67
[2018-11-14] MEDS ORDERED: OMEP40CA2 PO (13:58)
--- NOTE | 2018-11-14 14:27 | DS.PDOC ---
Discharge Summary General Date of Admission Nov 11, 2018 at 15:50 Date of Discharge 11/14/18 Attending Physician: FIONA GREENE DO Discharge Summary PROCEDURES PERFORMED DURING STAY: EGD ADMITTING DIAGNOSES: 1. Acute blood loss anemia 2. Upper GI bleed 3 Atrial fibrillation 4 syncope DISCHARGE DIAGNOSES: 1. Acute blood loss anemia 2. Upper GI bleed 3 Atrial fibrillation 4. Gastric ulcer 5. Syncope COMPLICATIONS/CHIEF COMPLAINT: Gi Bleed,Syncope. HISTORY OF PRESENT ILLNESS: Patient is 73 old female with past medical history of atrial fibrillation on anticoagulation, GERD, hypertension presents to the hospital after episode of syncope. Patient states that she fainted in the morning in front of her was physically present in the room. Patient stated that she remember that she was lightheadedness before she fainted. stated that patient regained consciousness in 5 minutes. Patient did not have any seizure-like activities, no urinary incontinence or fecal incontinence. After syncope patient developed one episode of emesis. When patient arrived hospital she was found to have hemoglobin of 8.8. Patient denies fever, chills, chest pain, palpitations, day or dysuria HOSPITAL COURSE: During hospital stay patient received blood transfusion 2 units, IV fluid resuscitation. Syncope resolved after blood transfusion. EGD was done and showed nonbleeding gastric ulcer with adherent clot , clips were placed. Duodenum was normal on examination. Patient received treatment with IV Protonix for 72 hours with positive effect. On the day of discharge patient is hemodynamically stable with no signs or symptoms of acute bleeding. Patient t olerated well regular diet, she didn't have any nausea or vomiting. Apixaban was on hold due to acute bleed. Recommended to resume it on 11/18/18 DISCHARGE MEDICATIONS: Please see below. ALLERGIES: Please see below. PHYSICAL EXAMINATION ON DISCHARGE: VITAL SIGNS: Please see below. Gen: NAD HEENT : PERRLA, EOMI CV S1-S2 Lungs clear to auscultation Abdomen nontender nondistended, bowel sounds present Extremities : No swelling, no cyanosis LABORATORY DATA: Please see below. IMAGING: EGD Impression: - Hematin (altered blood/[id number] material) in the pylorus. - Non-bleeding gastric ulcer with adherent clot. Clips (MR conditional) were placed. Injected. - Normal examined duodenum. - No specimens collected. PROGNOSIS: Favorable ACTIVITY: As tolerated. DIET: Regular DISCHARGE PLAN: Follow-up with centrifugal operator in 6 weeks DISPOSITION: Home DISCHARGE INSTRUCTIONS: 1. Keep on by mouth Protonix 40 twice a day for 6 weeks then tapered down to 40 daily ITEMS TO FOLLOWUP ON ON OUTPATIENT: 1. Follow-up with PCP in one week DISCHARGE CONDITION: Stable TIME SPENT ON DISCHARGE: Greater than 25 minutes. Vital Signs/I&Os Vital Signs Date Time Temp Pulse Resp B/P (MAP) Pulse Ox O2 Delivery O2 Flow Rate FiO2 11/14/18 10:58 70 164/64 (97) 69 165/64 (97) 74 153/67 (95) 11/14/18 10:00 97.8 18 97 11/11/18 19:45 2 11/11/18 17:54 Room Air I&O- Last 24 Hours up to 6 AM 11/14/18 06:00 Intake Total 1385 ml Output Total 900 ml Balance 485 ml Laboratory Data Labs 24H Laboratory Tests 2 11/14/18 05:25: Nucleated Red Blood Cells % (auto) 0.0, Anion Gap 5L, Glomerular Filtration Rate 59.9, Blood Urea Nitrogen 25H, Creatinine 0.97, Sodium Level 140, Potassium Level 4.2, Chloride Level 106, Carbon Dioxide Level 29, Calcium Level 8.6L, Magnesium Level 2.0 CBC/BMP Laboratory Tests 11/13/18 16:31 11/13/18 22:55 11/14/18 05:25 Red Blood Count 3.20 L, Mean Corpuscular Volume 85.9, Mean Corpuscular Hemoglobin 28.8, Mean Corpuscular Hemoglobin Concent 33.5, Red Cell Distribution Width 13.9, Calcium Level 8.6 L 11/14/18 10:18 Discharge Medications Scheduled Alprazolam (Alprazolam) 0.25 Mg Tablet, 0.25 MG PO BID, (Reported) Apixaban (Eliquis) 5 Mg Tablet, 5 MG PO BID, (Reported) Beta-Carotene(A)-Vits C,E/Mins (Vision Vitamins) 1 Each Tablet, 1 TAB PO DAILY, (Reported) Calcium Carbonate (Calcium) 500 Mg Tab.chew, 500 MG PO BID, (Reported) Fexofenadine HCl (Ana Allergy) 180 Mg Tablet, 180 MG PO DAILY for allergy symptoms, (Reported) Flecainide Acetate (Flecainide Acetate) 100 Mg Tablet, 100 MG PO BID, (Reported) Fluticasone Propionate (Flonase Allergy Relief) 9.9 Ml [place].susp, 2 SPRAY NARES QHS, (Reported) Lisinopril (Lisinopril) 20 Mg Tablet, 20 MG PO BID, (Reported) Multivit-Min/FA/Lycopen/Lutein (Centrum Silver Tablet) 1 Each Tablet, 1 TAB PO DAILY, (Reported) NORMALLY TAKES WITH LUNCH Omeprazole (Omeprazole) 40 Mg Capsule.dr, 40 MG PO BID for petic ulcer Psyllium Husk (Fiber) 0.52 Gm Capsule, 1 CAP PO BID, (Reported) Simvastatin (Simvastatin) 10 Mg Tablet, 10 MG PO QHS, (Reported) dilTIAZem HCl (Diltiazem 24Hr Cd) 240 Mg Cap.er.24h, 240 MG PO DAILY, (Reported) Scheduled PRN Acetaminophen (Acetaminophen ER) 650 Mg Tablet.er, 1,300 MG PO DAILY PRN for PAIN, (Reported) Docusate Sodium (Stool Softener) 100 Mg Capsule, 200 MG PO DAILY PRN for CONSTIPATION, (Reported) Meclizine HCl (Meclizine HCl) 25 Mg Tablet, 25 MG PO Q6H PRN for NAUSEA, (Reported) Polyethylene Glycol 3350 (Miralax) 119 Gm Powder, 17 GM PO DAILY PRN for CONSTIPATION, (Reported) dilute in 8 ounces of water or juice Tetrahydroz/Dext 70/Peg 400/Pv (Visine Advanced Eye Drop) 15 Ml Drops, 1 DROP OU Q6H PRN for ITCHING/SWELLING, (Reported) Allergies Coded Allergies: Penicillins (Verified Allergy, Intermediate, HIVES, 11/11/18) FIONA GREENE DO Nov 14, 2018 14:27
== END 2018-11-14 15:28 | disposition home or self-care (01) | DRG 378 ==
LOC: EDBD 12:46 → M ED 12:46 → M ED INP 15:50 → M MSPAV 20:16
PROVIDERS: ADMIT Internal Medicine; ATTEND Internal Medicine
PROC: 0W3P8ZZ Control Bleeding in Gastrointestinal Tract, Via Natural or Artificial Opening Endoscopic (ICD-10-PCS; 2018-11-11)
PROC: 30233N1 Transfusion of Nonautologous Red Blood Cells into Peripheral Vein, Percutaneous Approach (ICD-10-PCS; principal; 2018-11-12)
DX: K25.4 Chronic or unspecified gastric ulcer with hemorrhage (principal); D62 Acute posthemorrhagic anemia; I48.91 Unspecified atrial fibrillation; R55 Syncope and collapse; Z79.01 Long term (current) use of anticoagulants; K21.9 Gastro-esophageal reflux disease without esophagitis; I10 Essential (primary) hypertension; Z79.899 Other long term (current) drug therapy; Z88.0 Allergy status to penicillin